=== PATIENT | male | born 2005 ===

== ENCOUNTER 2023-01-06 15:29 | Emergency (ER) | payer OTHER ==
[~2023-01-06] VITALS: Ht 180.3 cm; Wt 90.7 kg
[2023-01-06 15:38] VITALS: BP 134/68
== END 2023-01-06 16:56 | disposition home or self-care (01) ==
LOC: ER 15:29
DX: R04.0 Epistaxis (principal); R55 Syncope and collapse
CPT/HCPCS: 99283